=== PATIENT | male | born 1990 | race African-American/Black ===

== ENCOUNTER 2019-03-22 15:30 | Emergency (ER) | payer OTHER ==
[~2019-03-22] VITALS: Ht 175.3 cm; Wt 104.3 kg
[~2019-03-22 15:30] MED LIST: IBUPROFEN 600600 M1 PO; IBUPROFEN 800800 M1 PO; NOHOMEMEDICATIONS; NORCO 5-325 TA1 EACH PO
[2019-03-22] MEDS ORDERED: MAGIC MOUTHWASH SWISH&SPIT (15:53)
[2019-03-22 16:37] VITALS: BP 159/108
== END 2019-03-22 16:39 | disposition home or self-care (01) ==
LOC: ER 15:30
DX: K14.6 Glossodynia (principal)